=== PATIENT | female | born 1975 | race Caucasian/White ===

== ENCOUNTER → 2021-10-26 | Outpatient (CLI) | payer BC | LOC: CARDFS 14:49 | PROVIDERS: ATTEND Nurse Practitioner Family | DX: I35.1 Nonrheumatic aortic (valve) insufficiency (principal); R60.1 Generalized edema | CPT/HCPCS: 93306 ==

== ENCOUNTER 2022-08-21 14:54 | Emergency (ER) | payer BC ==
[~2022-08-21] VITALS: Ht 160 cm; Wt 61.2 kg
[2022-08-21] MEDS ORDERED: CRESTOR (15:10)
--- NOTE | 2022-08-21 15:22 | ED GI ---
General Chief Complaint: Abdominal/GI Problems Stated Complaint: DIARRHEA | DEHYDRATED Nursing Triage Note: PT STATES DIARRHEA SINCE SATURDAY, BAD SINCE 1899 LAST NIGHT, NAUSEA BUT NO VOMIT. PBJ LAST NIGHT, JUST WATER TODAY Source of Information: Patient Exam Limitations: No Limitations History of Present Illness Date Seen by Provider: Aug 21, 2022 Time Seen by Provider: 15:10 Initial Comments Patient is a 47-year-old female who presents to the emergency department for evaluation of diarrhea that began Saturday but acutely worsened last night. Patient states she has also had nausea without vomiting. Last solid oral intake was a peanut butter jelly sandwich last night. She states she is just taken water today. States she also has some diffuse abdominal cramping intermittently. She states this is overall mild. Denies any blood in the stool. States she has been taking OTC antidiarrheals with no improvement in symptoms. Allergies and Home Medications Allergies Coded Allergies: sulfamethoxazole (Verified Allergy, Intermediate, Rash, 08/21/22) trimethoprim (Verified Allergy, Intermediate, Rash, 08/21/22) Patient Home Medication List Home Medication List Reviewed: Yes Diphenoxylate HCl/Atropine (Lomotil 2.5-0.025 mg Tablet) 2.5 Mg-0.025 Mg Tablet, 1 EACH PO Q6H PRN for DIARRHEA Prescribed by: Arron Dailey on 08/21/22 1700 Hyoscyamine Sulfate (Hyoscyamine Sulfate) 0.125 Mg Tab.subl, 0.125 MG SL Q6H PRN for CRAMPS Prescribed by: Arron Dailey on 08/21/22 1700 [Crestor] , (Reported) Entered as Reported by: ROMANA BRAR on 08/21/22 1510 Last Action: New Order Review of Systems Review of Systems Constitutional: no symptoms reported EENTM: No Symptoms Reported Respiratory: No Symptoms Reported Cardiovascular: No Symptoms Reported Gastrointestinal: See HPI, Abdominal Pain, Diarrhea Genitourinary: No Symptoms Reported Musculoskeletal: no symptoms reported Skin: no symptoms reported Psychiatric/Neurological: No Symptoms Reported Endocrine: No Symptoms Reported Hematologic/Lymphatic: No Symptoms Reported Past Cpodtth-Qgpuse-Aasunz Hx Patient Social History Tobacco Use?: No Substance use?: No Alcohol Use?: No Immunizations Up To Date Third COVID19 Vaccination Date: YES COVID19 Vaccine Echocardiography Tech: GIULIANO Past Medical History Surgery/Hospitalization HX: 3 C SECTIONS, CHOLESISTECTOMY, SCREW IN RT FOOT Last Menstrual Period: Jul 29, 2022 Physical Exam Vital Signs Vital Signs - First Documented 08/21/22 14:59 Temp 35.7 Pulse 105 Resp 20 B/P (MAP) 117/94 (102) Pulse Ox 99 O2 Delivery Room Air Capillary Refill : Less Than 3 Seconds Height/Weight/BMI Height: '" Weight: lbs. oz. kg; 23.00 BMI Method: General Appearance: WD/WN, no apparent distress HEENT: PERRL/EOMI, normal ENT inspection, TMs normal, pharynx normal Neck: non-tender, full range of motion, supple Respiratory: chest non-tender, lungs clear, normal breath sounds, no respiratory distress, no accessory muscle use Cardiovascular: regular rate, rhythm Gastrointestinal: normal bowel sounds, non tender, soft Neurologic/Psychiatric: no motor/sensory deficits, alert, normal mood/affect, oriented x 3 Skin: normal color, warm/dry Progress/Results/Core Measures Results/Orders Lab Results Laboratory Tests Test 08/21/22 15:15 Range/Units White Blood Count 11.6 H 4.3-11.0 10^3/uL Red Blood Count 4.74 3.80-5.11 10^6/uL Hemoglobin 14.4 11.5-16.0 g/dL Hematocrit 43 35-52 % Mean Corpuscular Volume 90 80-99 fL Mean Corpuscular Hemoglobin 30 25-34 pg Mean Corpuscular Hemoglobin Concent 34 32-36 g/dL Red Cell Distribution Width 12.0 10.0-14.5 % Platelet Count 271 130-400 10^3/uL Mean Platelet Volume 10.3 9.0-12.2 fL Immature Granulocyte % (Auto) 0 % Neutrophils (%) (Auto) 72 42-75 % Lymphocytes (%) (Auto) 20 12-44 % Monocytes (%) (Auto) 5 0-12 % Eosinophils (%) (Auto) 2 0-10 % Basophils (%) (Auto) 0 0-10 % Neutrophils # (Auto) 8.3 H 1.8-7.8 10^3/uL Lymphocytes # (Auto) 2.4 1.0-4.0 10^3/uL Monocytes # (Auto) 0.6 0.0-1.0 10^3/uL Eosinophils # (Auto) 0.3 0.0-0.3 10^3/uL Basophils # (Auto) 0.0 0.0-0.1 10^3/uL Immature Granulocyte # (Auto) 0.0 0.0-0.1 10^3/uL Sodium Level 137 135-145 MMOL/L Potassium Level 3.6 3.6-5.0 MMOL/L Chloride Level 109 H 98-107 MMOL/L Carbon Dioxide Level 17 L 21-32 MMOL/L Anion Gap 11 5-14 MMOL/L Blood Urea Nitrogen 14 7-18 MG/DL Creatinine 1.07 0.60-1.30 MG/DL Estimat Glomerular Filtration Rate 65 BUN/Creatinine Ratio 13 Glucose Level 93 70-105 MG/DL Calcium Level 9.5 8.5-10.1 MG/DL Corrected Calcium 8.5-10.1 MG/DL Total Bilirubin 0.7 0.1-1.0 MG/DL Aspartate Amino Transf (AST/SGOT) 20 5-34 U/L Alanine Aminotransferase (ALT/SGPT) 26 0-55 U/L Alkaline Phosphatase 65 40-136 U/L Total Protein 8.4 H 6.4-8.2 GM/DL Albumin 4.6 H 3.2-4.5 GM/DL My Orders Orders - ARRON DAILEY APRN Cbc With Automated Diff (08/21/22 15:21) Comprehensive Metabolic Panel (08/21/22 15:21) Ed Iv/Invasive Line Start (08/21/22 15:21) Ns Iv 1000 Ml (Sodium Chloride 0.9%) (08/21/22 15:30) Vital Signs/I&O 08/21/22 08/21/22 14:59 17:08 Temp 35.7 35.7 Pulse 105 79 Resp 20 20 B/P (MAP) 117/94 (102) 113/67 Pulse Ox 99 99 O2 Delivery Room Air Room Air Blood Pressure Mean: 102 Progress Progress Note : Progress Note Patient is nontoxic and well-hydrated on exam. Vital signs are reassuring other than very mild tachycardia. Abdominal exam reassuring without significant focal provocation of pain with palpation. No abdominal distention or rigidity appreciated. Orders placed for CBC,, IV start, and administration of a liter of normal saline. CBC and CMP largely unremarkable with no concerning findings. Patient did have some improvement in symptoms after the bolus of normal saline. No indication for further diagnostics at this time. Patient was updated on plan of care and findings. She verbalized understanding. Discussed importance of close follow- up with PCP. Return precautions for symptomology discussed. Patient will be given a prescription for antidiarrheal and antispasmodic to help with symptom control. Departure Impression Primary Impression: Diarrhea Qualified Codes: R19.7 - Diarrhea, unspecified Additional Impression: Abdominal pain Qualified Codes: R10.9 - Unspecified abdominal pain Disposition: HOME, SELF-CARE Condition: Stable Departure-Patient Inst. Decision time for Depature: 16:55 Referrals: BINTA MONTERO APRN (PCP) Primary Care Physician [facility] (Family) Primary Care Physician Patient Instructions: Diarrhea, Adult ED, Abdominal Pain, Adult ED Scripts Hyoscyamine Sulfate (Hyoscyamine Sulfate) 0.125 Mg Tab.subl 0.125 MG SL Q6H PRN for CRAMPS for 5 Days, #20 TAB 0 Refills Prov: ARRON DAILEY APRN 08/21/22 Diphenoxylate HCl/Atropine (Lomotil 2.5-0.025 mg Tablet) 2.5 Mg-0.025 Mg Tablet 1 EACH PO Q6H PRN for DIARRHEA for 5 Days, #20 TAB 0 Refills Prov: ARRON DAILEY APRN 08/21/22 Work/School Note: Work Release Form Date Seen in the Emergency Department: Aug 21, 2022 Return to Work: Aug 24, 2022 ARRON DAILEY APRN Aug 21, 2022 15:22
[2022-08-21] MEDS ORDERED: NS IV 1000 ML 1,000 ML IV SCH (15:30)
[2022-08-21 15:32] LABS: BASOPHILS % (AUTO) 0 % (0-10); EOSINOPHILS # (AUTO) 0.3 10^3/uL (0.0-0.3); EOSINOPHILS % (AUTO) 2 % (0-10); HEMATOCRIT 43 % (35-52); HEMOGLOBIN 14.4 g/dL (11.5-16.0); LYMPHOCYTES # (AUTO) 2.4 10^3/uL (1.0-4.0); LYMPHOCYTES % (AUTO) 20 % (12-44); MEAN CORPUSCULAR HEMOGLOBIN 30 pg (25-34); MEAN CORPUSCULAR HGB CONC 34 g/dL (32-36); MEAN CORPUSCULAR VOLUME 90 fL (80-99); MEAN PLATELET VOLUME 10.3 fL (9.0-12.2); MONOCYTES # (AUTO) 0.6 10^3/uL (0.0-1.0); MONOCYTES % (AUTO) 5 % (0-12); NEUTROPHILS # (AUTO) 8.3 10^3/uL (1.8-7.8); NEUTROPHILS % (AUTO) 72 % (42-75); PLATELET COUNT 271 10^3/uL (130-400); WHITE BLOOD COUNT 11.6 10^3/uL (4.3-11.0)
[2022-08-21 15:36] LABS: ALBUMIN 4.6 GM/DL (3.2-4.5); CHLORIDE 109 MMOL/L (98-107); POTASSIUM 3.6 MMOL/L (3.6-5.0); SODIUM 137 MMOL/L (135-145)
[2022-08-21 15:37] LABS: CALCIUM 9.5 MG/DL (8.5-10.1)
[2022-08-21 15:38] LABS: GLUCOSE 93 MG/DL (70-105); TOTAL PROTEIN 8.4 GM/DL (6.4-8.2)
[2022-08-21 15:39] LABS: CARBON DIOXIDE 17 MMOL/L (21-32)
[2022-08-21 15:40] LABS: BILIRUBIN,TOTAL 0.7 MG/DL (0.1-1.0)
[2022-08-21 15:42] LABS: ALKALINE PHOSPHATASE 65 U/L (40-136); CREATININE SERUM 1.07 MG/DL (0.60-1.30); GFR ESTIMATED 65
[2022-08-21 15:43] LABS: BUN/CREATININE RATIO 13
[2022-08-21 15:45] LABS: ALANINE AMINOTRANSFERASE 26 U/L (0-55)
[2022-08-21] MEDS ORDERED: HYOS-19 SL (17:00)
[2022-08-21] MEDS ORDERED: DIPH1TAB PO (17:00)
[2022-08-21 17:08] VITALS: BP 113/67
== END 2022-08-21 17:08 | disposition home or self-care (01) ==
LOC: EDUNIT# 14:54 → ER 14:56
DX: R19.7 Diarrhea, unspecified (principal); R10.9 Unspecified abdominal pain
CPT/HCPCS: 36415; 80053; 85025; 99281